=== PATIENT | female | born 1960 | race Caucasian/White ===

== ENCOUNTER 2017-07-09 12:59 | Day surgery (SDC) | payer BC ==
[~2017-07-09] VITALS: Ht 152.4 cm; Wt 77.8 kg
[2017-07-09 13:47] VITALS: Ht 152.4 cm; Wt 77.8 kg
[2017-07-09 14:05] VITALS: BP 121/77; PULSE 60; RESP 16
[2017-07-09] MEDS ORDERED: MIDAZOLAM 1 MG/ML 2 ML INJ ONE (14:41)
[2017-07-09] MEDS ORDERED: FENTAnyl 50 MCG/ML VIAL ONE (14:42)
[2017-07-09 14:52] VITALS: BP 112/69; RESP 14
--- NOTE | 2017-07-09 15:10 | OPPN ---
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
--- NOTE | 2017-07-10 02:57 | GILP ---
DATE OF PROCEDURE: 07/09/2017 PREOPERATIVE DIAGNOSIS: Screening colonoscopy. PROCEDURE DONE: Colonoscopy, biopsy, polyp removal. POSTOPERATIVE DIAGNOSES: 1. One small polyp near the hepatic flexure. 2. Two small polyps at the splenic flexure, removed by biopsy forceps. DESCRIPTION OF PROCEDURE: The patient was put in left lateral decubitus after obtaining informed co nsent. Two mg IV Versed, 50 mcg of fentanyl given. Rectal exam done and advanced an Olympus video colonoscope all the way to cecum. In the cecum, appendiceal opening identified. Cecum, ascending c olon normal. In the hepatic flexure area, a 3 mm polyp was noted. This was removed completely with the biopsy forceps, sent to histopathology. In the splenic flexure, there was an area of 2 small p olyps, one was 2 mm, another 3 mm. Both were removed with biopsy forceps and then slowly withdrew t he scope back, examining the left colon which was unremarkable. Rectum normal, including retroflexi on. Postop, patient had no complication. Plan will be to await for biopsy report and follow up as outpatient. Repeat colonoscopy in 3 to 5 years. Dictated By: WALLY ACOSTA Conf#: [id number] DID#: [id number] CC: SATHYA BARRAZA;*EndCC*
== END 2017-07-09 15:03 | disposition home or self-care (01) ==
LOC: GIL 12:59
PROVIDERS: ATTEND Internal Medicine
DX: Z12.11 Encounter for screening for malignant neoplasm of colon (principal); K63.5 Polyp of colon
CPT/HCPCS: 45380; J2250; J3010; Z7610